=== PATIENT | male | born 1955 | race Caucasian/White ===

== ENCOUNTER 2016-06-25 14:04 | Inpatient (IN) | payer OTHER ==
[2016-06-25 14:29] VITALS: BMI 44.6
[2016-06-25 15:04] LABS: BLOOD UREA NITROGEN 83 MG/DL (9-20); CALCIUM 9.1 MG/DL (8.4-10.2); CALCULATED OSMOLALITY 282 MOs/Kg (270-290); CHLORIDE 70 mEq/L (98-107); PARTIAL THROMB. TIME 27.1 SEC (22-35); TOTAL PROTEIN 8.1 G/DL (6.3-8.2)
--- NOTE | 2016-06-25 15:08 | DIRPT ---
CLINICAL DATA: Short of breath. Low potassium. EXAM: CHEST 2 VIEW COMPARISON: 05/31/2015 and 12/17/2014. FINDINGS: Left lower lung zone nodule, as noted on the prior to chest radiographs, is without change since 12/17/2014. The stability strongly supports a benign etiology. Lungs otherwise clear. No pleural effusion or pneumothorax. Heart, mediastinum rhett are unremarkable. Bony thorax is intact. IMPRESSION: No active cardiopulmonary disease. Electronically Signed By: Chuck Flores M.D. On: 06/25/2016 15:05
[2016-06-25 15:14] LABS: GLUCOSE 412 MG/DL (70-99); SODIUM LEVEL 124 mEq/L (137-146)
[2016-06-25 15:16] LABS: MPV 9.3 fL (7.4-10.4)
[2016-06-25 15:50] LABS: SEG NEUTROPHIL 87 % (45-76)
[2016-06-25] MEDS ORDERED: NS 1,000 ML IV ONE (15:51)
[2016-06-25] MEDS ORDERED: POTASSIUM CHLORIDE 20 MEQ TAB PO ONE (15:52)
--- NOTE | 2016-06-25 16:06 | EDPRACDOC ---
- General Information Chief Complaint: Neuro Symptoms/Deficits Stated Complaint: LOW POTASSIUM/DIZZINESS Time Seen by Provider: 06/25/16 16:03 Information Source: Patient Mode Of Arrival: Car Home Medications: Home Medications Atorvastatin Calcium 80 mg PO HS 02/23/16 Furosemide 40 mg PO DAILY 02/23/16 Metoprolol Tartrate 25 mg PO BID 02/23/16 Nitroglycerin [Nitrostat] 0.4 mg SL Q5MX3 PRN 02/23/16 Potassium Chloride [Klor-Con 10] 10 meq PO DAILY 02/23/16 Aspirin [Ecotrin] 81 mg PO DAILY 03/01/16 Prasugrel HCl [Effient] 10 mg PO DAILY 03/01/16 Torsemide 20 mg PO BID 06/25/16 Allergies/Adverse Reactions: Allergies Allergy/AdvReac Type Severity Reaction Status Date / Time morphine Allergy Nausea/Vomi Verified 06/25/16 14:29 ting pseudoephedrine Allergy Hives* Verified 06/25/16 14:29 - History of Present Illness Onset: 2 WKS HPI: h/o CHF/ DC, evaluated by [facility] a week ago for 35 pound weight gain. Inc diuretics and had blood drawn yesterday. Pt was called and told to come to the ER. He c/o leg cramping and extreme thirst. No h/o diabetes, has blood sugar over 400 with K 2.4 Symptoms Started: Reports: Gradually Symptoms Description: Worsening Symptoms: Reports: Weak. Denies: Change of vision Relevant History of: Reports: Electrolyte disorder, DC Associated signs and symptoms:: Denies: GI Bleed, Chest pain, Fever ED Past Medical History - History Reviewed Yes Nurses notes reviewed and agree except as marked - Patient Medical History Cardiac History: Reports: Congestive Heart Failure, Cardiac Catheterization. Denies: Hypertension (taken off BP meds 5-6 months ago), Heart Attack Respiratory History: Reports: Cough, Pulmonary Embolism. Denies: Asthma, Pneumonia GI/ History: Reports: Kidney Stones. Denies: Renal Disease Musculoskeletal History: Reports: Arthritis (stephanie knee), Osteoarthritis (knees) Psychological History: Denies: Substance Use Disorder Systemic History: Reports: Cancer (SKIN) Surgical History: Reports: Angioplasty (06/02/15), Cardiac Catheterization, Other (Bilat. knee ACL repairs; carpal tunnel R, trigger finger repair). Denies: Cholecystectomy - Family Medical History Reports: Hypertension (multi family), Diabetes (brother/father), Cardiac Disorders (grandfather ([place])). Denies: Cancer, Stroke - Social Medical History Smoking Status: Former smoker Social History: Denies: Substance Use Disorder EDM Review of Systems - Review of Systems ROS Negative Except as Marked: Yes All systems reviewed and were negative except as marked - Physical Exam Constitutional: Alert (Awake), No apparent distress Oriented to: Time, Person, Place Last recorded Vital Signs: Last Vital Signs Temp 98.7 F 06/25/16 14:24 Pulse 79 06/25/16 15:47 Resp 18 06/25/16 14:24 BP 141/75 06/25/16 15:47 Pulse Ox 95 06/25/16 15:47 Oxygen Pulse Oxygen Saturation 95 O2 Device Room Air Oxygen Flow Rate Fraction of Inspired Oxygen ( FIO2) - HEENT Head: Normal ( normocephalic) Eye Exam: Normal (PERRL, EOMI, Sclera white) Oropharynx: Membranes Dry Tympanic Membrane: Normal ENT EAC: Normal TMJ: Normal Nose: No Symptoms Reported (septum midline) Neck: Normal (FROM, trachea at midline) - Respiratory/Cardiovascular Respiratory: Normal - CTA (BBS clear to auscultation without adventitious sounds ) Cardiovascular: Normal (RRR without murmur, gallop or rub) - GI Auscultation: Normal (NABS) Palpation: Normal (Soft,No rebound or guarding, non distended) Tenderness: Non tender West's Sign: Negative - Musculoskeletal Back: Normal (Non-Tender) Extremities: Normal (Normal tone, Pulses 2+ No cyanosis or edema, FROM) - Integumentary Skin: Normal, Warm, Dry Lymphatics: Normal (no adenopathy) - Neurologic Memory Impaired: Normal Motor Function: Normal (Normal tone, Pulses 2+ No cyanosis or edema, FROM) Cranial Nerve: Normal (CN II-X11 intact sensation, strength 5/5) Cerebellar: Normal Mood Description: Normal Perception: Normal - Results 06/25/16 14:36 06/25/16 14:36 WBC 8.7 xk/uL (3.8-10.8) 06/25/16 14:36 RBC 4.76 xM/uL (4.70-6.10) 06/25/16 14:36 Hgb 14.9 g/dL (14.0-18.0) 06/25/16 14:36 Hct 42.0 % (42-52) 06/25/16 14:36 MCV 88 fL (80-94) 06/25/16 14:36 MCH 31.4 pg (27-32) 06/25/16 14:36 MCHC 35.5 g/dl (33-36) 06/25/16 14:36 RDW 13.5 % (11.5-14.5) 06/25/16 14:36 Plt Count 173 xk/uL (130-400) 06/25/16 14:36 MPV 9.3 fL (7.4-10.4) 06/25/16 14:36 Neut % (Auto) Cancelled 06/25/16 14:36 Lymph % (Auto) Cancelled 06/25/16 14:36 Craig % (Auto) Cancelled 06/25/16 14:36 Eos % (Auto) Cancelled 06/25/16 14:36 Baso % (Auto) Cancelled 06/25/16 14:36 Absolute Neuts (auto) Cancelled 06/25/16 14:36 Absolute Lymphs (auto) Cancelled 06/25/16 14:36 Seg Neuts % (Manual) 87 % (45-76) H 06/25/16 14:36 Lymphocytes % (Manual) 10 % (17-44) L 06/25/16 14:36 Monocytes % (Manual) 3 % (0-10) 06/25/16 14:36 Absolute Lymphocytes 0.87 xk/uL (0.65-4.75) 06/25/16 14:36 Platelet Estimate Norm (NORMAL) 06/25/16 14:36 RBC Morphology Norm 06/25/16 14:36 PT 10.7 SEC (9.2-11.2) 06/25/16 14:36 INR 1.0 06/25/16 14:36 APTT 27.1 SEC (22-35) 06/25/16 14:36 Sodium 124 mEq/L (137-146) L* 06/25/16 14:36 Potassium 2.4 mEq/L (3.5-5.1) L* 06/25/16 14:36 Chloride 70 mEq/L (98-107) L 06/25/16 14:36 Carbon Dioxide 39 mMOL/L (22-33) H 06/25/16 14:36 Anion Gap 17 mEq/L (8-16) H 06/25/16 14:36 BUN 83 MG/DL (9-20) H 06/25/16 14:36 Creatinine 1.80 MG/DL (0.66-1.25) H 06/25/16 14:36 Estimated GFR (MDRD) 39 mL/min (>=60) L 06/25/16 14:36 Glucose 412 MG/DL (70-99) H* 06/25/16 14:36 Calculated Osmolality 282 MOs/Kg (270-290) 06/25/16 14:36 Calcium 9.1 MG/DL (8.4-10.2) 06/25/16 14:36 Total Bilirubin 1.8 MG/DL (0.2-1.3) H 06/25/16 14:36 AST 44 IU/L (17-59) 06/25/16 14:36 ALT 43 IU/L (21-72) 06/25/16 14:36 Alkaline Phosphatase 112 IU/L (38-126) 06/25/16 14:36 Troponin I 0.04 ng/mL (<.04) 06/25/16 14:36 Ozx-A-Ydhiievqnzt Pept 225 pg/mL (0-900) 06/25/16 14:36 Total Protein 8.1 G/DL (6.3-8.2) 06/25/16 14:36 Albumin 4.6 G/DL (3.5-5.0) 06/25/16 14:36 Lab Results 06/25/16 06/25/16 06/25/16 14:36 14:36 14:36 WBC 8.7 RBC 4.76 Hgb 14.9 Hct 42.0 MCV 88 MCH 31.4 MCHC 35.5 RDW 13.5 Plt Count 173 MPV 9.3 Neut % (Auto) Cancelled Lymph % (Auto) Cancelled Craig % (Auto) Cancelled Eos % (Auto) Cancelled Baso % (Auto) Cancelled Absolute Neuts (auto) Cancelled Absolute Lymphs (auto) Cancelled Seg Neuts % (Manual) 87 H Lymphocytes % (Manual) 10 L Monocytes % (Manual) 3 Absolute Lymphocytes 0.87 Platelet Estimate Norm RBC Morphology Norm PT 10.7 INR 1.0 APTT 27.1 Sodium 124 L* Potassium 2.4 L* Chloride 70 L Carbon Dioxide 39 H Anion Gap 17 H BUN 83 H Creatinine 1.80 H Estimated GFR (MDRD) 39 L Glucose 412 H* Calculated Osmolality 282 Calcium 9.1 Total Bilirubin 1.8 H AST 44 ALT 43 Alkaline Phosphatase 112 Troponin I 0.04 Cjl-N-Eqwjziazrts Pept 225 Total Protein 8.1 Albumin 4.6 - Departure Final Diagnosis: Hyperglycemia, Hypokalemia Referrals: Tyler Yanez MD [Primary Care Provider] - One Week Prescriptions: No Action Metoprolol Tartrate 25 mg PO BID Atorvastatin Calcium 80 mg PO HS Potassium Chloride [Klor-Con 10] 10 meq PO DAILY Furosemide 40 mg PO DAILY Nitroglycerin [Nitrostat] 0.4 mg SL Q5MX3 PRN PRN Reason: Chest Pain Or Discomfort Prasugrel HCl [Effient] 10 mg PO DAILY Aspirin [Ecotrin] 81 mg PO DAILY Torsemide 20 mg PO BID Decision to Admit Time: 16:09 (DR Contreras to admit) Decision to admit date: 06/25/16 Decision to admit: from ED
[2016-06-25] MEDS ORDERED: GLUCOSE (ORAL GEL) 15 GM TUBE PO PRN (16:31)
[2016-06-25] MEDS ORDERED: DEXTROSE 25 GM/50 ML PFS IV PRN (16:31)
[2016-06-25] MEDS ORDERED: GLUCAGON 1 MG VIAL SQ PRN (16:31)
[2016-06-25] MEDS: KCl 10 mEq/100 ml Premix (Run) 10 MEQ/100 ML RTU IV SCH ×4 (17:09→21:39)
[2016-06-25 17:14] LABS: LEUKOCYTES/URINE NEG (NEGATIVE); NITRITE/URINE NEG (NEGATIVE); URINE OCCULT BLOOD NEG (NEG/TRACE); WBC/URINE 0-2 (0-2)
--- NOTE | 2016-06-25 17:21 | HISTPHYS ---
- Chief Complaint DIZZINESS, LEG CRAMPS - History of Present Illness Jerzy Soto is a 61 year old white man who presented to the ED with a 3 day history of weakness and dizziness, and associated leg and abdominal cramping. He states that he had gained about 16 pounds in two weeks, felt swollen in his abdomen, but had no swelling in his legs, and went to see his can maker, Dr. Morales. Some blood tests were drawn and the patient was placed on a diuretic and told to return today. He returned with these symptoms today and was advised to come to the ED. He states that at first he seemed to urinate a lot more, then somewhat less, then an average amount, but continued to feel swollen and bloated, and now felt weak and dizzy, and a bit nauseated. His legs began to cramp and he began to get abdominal cramps also. The patient 's blood sugar was found to be over 400. Initially the patient denied any family history of diabetes, but then admitted that one of his brothers does have diabetes, but he didn't get it until he was in his fifties. - Medical History Cardiac History: Reports: Coronary Artery Disease (angioplasty and stent placed last May 2015), Congestive Heart Failure, Cardiac Catheterization (May 2015 - [facility] ER), Stress Test (May 2015 + ischemia), Hypercholesterolemia. Denies: Hypertension (taken off BP meds 5-6 months ago), Heart Attack Respiratory History: Reports: Cough, Pulmonary Embolism. Denies: Asthma, Pneumonia GI/ History: Reports: Kidney Stones. Denies: Renal Disease Musculoskeletal History: Reports: Arthritis (stephanie knee), Osteoarthritis (knees) Systemic History: Reports: Cancer (SKIN). Denies: Diabetes, Hypothyroidism Neurological History: Reports: No Significant History Psychological History: Reports: No Significant History. 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 knee ACL repairs; carpal tunnel R, trigger finger repair). Denies: Cholecystectomy - Medictions/Allergies Allergies morphine Allergy (Verified 06/25/16 14:29) Nausea/Vomiting pseudoephedrine Allergy (Verified 06/25/16 14:29) Hives* Current Medication List: Reviewed Home Medications Atorvastatin Calcium 80 mg PO HS 02/23/16 Furosemide 40 mg PO DAILY 02/23/16 Metoprolol Tartrate 25 mg PO BID 02/23/16 Nitroglycerin [Nitrostat] 0.4 mg SL Q5MX3 PRN 02/23/16 Potassium Chloride [Klor-Con 10] 10 meq PO DAILY 02/23/16 Aspirin [Ecotrin] 81 mg PO DAILY 03/01/16 Prasugrel HCl [Effient] 10 mg PO DAILY 03/01/16 Torsemide 20 mg PO BID 06/25/16 - Family History Reports: Hypertension (multi family), Diabetes (brother/father), Cardiac Disorders (grandfather ([place])). Denies: Cancer, Stroke - Social History Travel Outside of [place] in the Last 3 Months?: No Lives: with Significant Other Smoking Status: Former smoker (quit 1991) Social History: Denies: Alcohol Use, Substance Use Disorder - Review of Systems Constitutional: Weight gain (20 lb in 1 week) Eyes: Blurred Vision Ears: No Symptoms Reported Nose: No Symptoms Reported Mouth: Dry Mouth Throat/Neck: No Symptoms Reported, Hoarseness, Snoring Respiratory: Cough, Shortness of Breath, Bronchitis, Other (sinus congestion, bad taste in mouth) Cardiovascular: Edema, Syncope. negative: Chest Pain, Cyanosis, Orthopnea, Palpitations, PND Gastrointestinal: Nausea, Constipation, Appetite Changes. negative: Vomiting, Abdominal Pain, Melena Genitourinary: Frequency, Nocturia, Urgency to urinate. negative: Bleeding, Dysuria, Discharge, Testicular Pain, Flank Pain, Benign prostatic hyperplasia ( BPH) Neurological: Dizziness, Headache, Weakness. negative: Gait Difficulty, Seizure , Speech Difficulty, Vertigo, Tremors, Mood Changes, Memory Changes, Changes in Orientation Musculoskeletal:: Osteoarthritis, Stiffness, Gout, Weakness, Joint Pain, Muscle Pain Integumentary: No Symptoms Reported Allergic/Immunologic: No Symptoms Reported Hematologic: No Symptoms Reported Endocrine: Weight Gain, Heat Intolerance, Diabetes Psychiatric: Anxiety - Physical Exam Vital Signs: Initial Vitals Temperature 98.7 F 06/25/16 14:24 Pulse Rate 72 06/25/16 14:24 Respiratory Rate 18 06/25/16 14:24 Blood Pressure 133/82 06/25/16 14:24 Pulse Oxygen Saturation 93 06/25/16 14:24 Constitutional: Alert, Restless, Other (obese) Oriented to: Time, Person, Place - HEENT Head: Normal Eye: Normal (PERRL: EOMI) Oropharynx: Membranes Dry. negative: Drooling, Exudate, Red Tympanic Membrane: Normal ENT EAC: Normal. negative: Cerumen Nose: Bleeding (Right side,), Congestion. negative: Discharge, Deformity Respiratory: Normal - CTA. negative: Accessory Muscle Use Cardiovascular: Normal (regular rhthm and rate) - GI Auscultation: Normal Palpation: Normal (soft, obese, nondistended, no mass). negative: Enlarged liver, Enlarged spleen, Fluid Wave Tenderness: Non tender West's Sign: Negative Rectal Exam: Deferred - Musculoskeletal Back: Normal Extremities: Normal, Pedal Pulse (normal), Radial Pulse (normal). negative: Clubbing, Cyanosis, Edema Spine: non-tender, normal alignment, normal inspection - Integumentary Skin: Warm, Dry Lymphatics: Normal - Neurologic Memory Impaired: Normal Motor Function: Normal Cranial Nerve: Normal Cerebellar: Normal Mood Description: Anxious, Appropriate Thought: Coherent Perception: Normal - Focused CV Perfusion Exam Vital Signs: Last Vital Signs Temp 98.7 F 06/25/16 14:24 Pulse 79 06/25/16 15:47 Resp 18 06/25/16 14:24 BP 141/75 06/25/16 15:47 Pulse Ox 95 06/25/16 15:47 - Lab Results Laboratory Tests 06/25/16 06/25/16 06/25/16 14:36 14:36 14:36 WBC 8.7 Hgb 14.9 Hct 42.0 Plt Count 173 Seg Neuts % (Manual) 87 H Monocytes % (Manual) 3 PT 10.7 INR 1.0 APTT 27.1 Sodium 124 L* Potassium 2.4 L* Chloride 70 L Carbon Dioxide 39 H Anion Gap 17 H BUN 83 H Creatinine 1.80 H Estimated GFR (MDRD) 39 L Glucose 412 H* Calculated Osmolality 282 Calcium 9.1 Total Bilirubin 1.8 H AST 44 ALT 43 Alkaline Phosphatase 112 Troponin I 0.04 Fnv-V-Kxzupjobrab Pept 225 Total Protein 8.1 Albumin 4.6 Urine Color Urine Clarity Urine pH Ur Specific [place] Urine Protein Urine Glucose (UA) Urine Ketones Urine Nitrite Ur Leukocyte Esterase Urine WBC Ur Epithelial Cells 06/25/16 16:40 WBC Hgb Hct Plt Count Seg Neuts % (Manual) Monocytes % (Manual) PT INR APTT Sodium Potassium Chloride Carbon Dioxide Anion Gap BUN Creatinine Estimated GFR (MDRD) Glucose Calculated Osmolality Calcium Total Bilirubin AST ALT Alkaline Phosphatase Troponin I Pmn-J-Nmfrdfiwphn Pept Total Protein Albumin Urine Color Yellow Urine Clarity Clear Urine pH 8.0 Ur Specific [place] 1.005 Urine Protein 1+ H Urine Glucose (UA) Neg Urine Ketones Neg Urine Nitrite Neg Ur Leukocyte Esterase Neg Urine WBC 0-2 Ur Epithelial Cells Occ - Diagnostic Findings CXR: FINDINGS: Left lower lung zone nodule, as noted on the prior to chest radiographs, is without change since 12/17/2014. The stability strongly supports a benign etiology. Lungs otherwise clear. No pleural effusion or pneumothorax. Heart, mediastinum rhett are unremarkable. Bony thorax is intact. IMPRESSION: No active cardiopulmonary disease. Electronically Signed By: Chuck Flores M.D. On: 06/25/2016 15:05 EKG: - Assessment (1) Acute kidney injury N17.9 - ACUTE KIDNEY FAILURE, UNSPECIFIED Acute Present on Admission: Yes Admit to PCU, begin aggressive hydration then correct serum electrolyte abnormalities carefully. Will correct serum sodium slowly, potassium needs supplementation also. Follow renal function closely. (2) Hyponatremia with decreased serum osmolality E87.1 - HYPO-OSMOLALITY AND HYPONATREMIA Acute Present on Admission: Yes Follow renal function and lab abnormalities closely, so as not to correct abnormalities too quickly. Use normal saline only. Add potassium after initial 2 liters of IV fluids given. (3) Hyperglycemia R73.9 - HYPERGLYCEMIA, UNSPECIFIED Acute Present on Admission: Yes Suspect new onset of diabetes mellitus-2. Check Hg A1c. Will monitor FSBS q 4 hr or ACHS and use moderate dose SSI. Hydrate patient aggressively and give insulin as needed. Once renal failure has been corrected, may be able to start oral medication. (4) Hypokalemia E87.6 - HYPOKALEMIA Acute Present on Admission: Yes replace potassium losses. (5) Hypertension I10 - ESSENTIAL (PRIMARY) HYPERTENSION Chronic Qualifiers: Hypertension type: essential hypertension Qualified Code(s): I10 - Essential (primary) hypertension Continue low dose beta-karlie. 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 (7) Coronary artery disease I25.10 - ATHSCL HEART DISEASE OF [place] CORONARY ARTERY W/O ANG PCTRS Acute Present on Admission: Yes Qualifiers: Coronary Disease-Associated Artery/Lesion type: [place] artery [place] vs. transplanted heart: [place] heart Associated angina: without angina Qualified Code(s): I25.10 - Atherosclerotic heart disease of [place] coronary artery without angina pectoris Patient is on Effient & Aspirin, does not need Enoxaparin. Case Care Discussed with: Patient, Nursing Staff Total Time: 65 min Critical Care: Yes Couseling Time (>50% in counseling/coordination): Yes Code: 291
[2016-06-25] MEDS ORDERED: NITROGLYCERINE 0.4 MG TAB SL PRN (17:52)
[2016-06-25 18:29] LABS: BLOOD UREA NITROGEN 81 MG/DL (9-20); CALCIUM 9.3 MG/DL (8.4-10.2); CALCULATED OSMOLALITY 283 MOs/Kg (270-290); CHLORIDE 70 mEq/L (98-107); GLUCOSE 309 MG/DL (70-99); SODIUM LEVEL 128 mEq/L (137-146)
[2016-06-25] MEDS: REGULAR INSULIN 100 UNITS/ML - 3 ML VIAL SQ SCH ×2 (18:35→22:50)
[2016-06-25] MEDS ORDERED: Vaccine Screening Complete SCH (19:00)
[2016-06-25] MEDS: NS 1,000 ML IV SCH ×2 (20:08→21:05)
[2016-06-25] MEDS: POTASSIUM CHLORIDE 20 MEQ TAB PO SCH ×2 (20:09→22:49)
[2016-06-25] MEDS: METOPROLOL TARTRATE 25 MG TAB PO SCH (20:10)
[2016-06-25] MEDS: ATORVASTATIN 80 MG TAB PO SCH (20:10)
[2016-06-25 21:31] LABS: BLOOD UREA NITROGEN 75 MG/DL (9-20); CALCIUM 8.3 MG/DL (8.4-10.2); CALCULATED OSMOLALITY 277 MOs/Kg (270-290); CHLORIDE 76 mEq/L (98-107); GLUCOSE 281 MG/DL (70-99); SODIUM LEVEL 127 mEq/L (137-146)
[2016-06-25] MEDS: NS/KCL 40 mEq 1,000 ML IV SCH (22:43)
[2016-06-26] MEDS: NS/KCL 40 mEq 1,000 ML IV SCH ×4 (00:12→23:16)
[2016-06-26 01:16] LABS: BLOOD UREA NITROGEN 67 MG/DL (9-20); CALCIUM 8.3 MG/DL (8.4-10.2); CALCULATED OSMOLALITY 272 MOs/Kg (270-290); CHLORIDE 79 mEq/L (98-107); GLUCOSE 198 mg/dL (70-99); SODIUM LEVEL 128 mEq/L (137-146)
[2016-06-26] MEDS: REGULAR INSULIN 100 UNITS/ML - 3 ML VIAL SQ SCH ×4 (05:37→20:27)
[2016-06-26 05:42] LABS: BLOOD UREA NITROGEN 55 MG/DL (9-20); CALCIUM 8.6 MG/DL (8.4-10.2); CALCULATED OSMOLALITY 273 MOs/Kg (270-290); CHLORIDE 84 mEq/L (98-107); GLUCOSE 155 mg/dL (70-99); SODIUM LEVEL 132 mEq/L (137-146)
[2016-06-26] MEDS: METOPROLOL TARTRATE 25 MG TAB PO SCH ×2 (08:02→20:28)
[2016-06-26] MEDS: PRASUGREL HCL 10 MG TABLET PO SCH (08:02)
[2016-06-26 09:56] LABS: BLOOD UREA NITROGEN 51 MG/DL (9-20); CALCIUM 8.7 MG/DL (8.4-10.2); CALCULATED OSMOLALITY 280 MOs/Kg (270-290); CHLORIDE 84 mEq/L (98-107); GLUCOSE 288 mg/dL (70-99); SODIUM LEVEL 132 mEq/L (137-146)
[2016-06-26 13:11] LABS: BLOOD UREA NITROGEN 43 MG/DL (9-20); CALCIUM 8.7 MG/DL (8.4-10.2); CALCULATED OSMOLALITY 275 MOs/Kg (270-290); CHLORIDE 88 mEq/L (98-107); GLUCOSE 238 mg/dL (70-99); SODIUM LEVEL 133 mEq/L (137-146)
--- NOTE | 2016-06-26 13:50 | GENMEDPROG ---
Chief Complaint: JUD, [place] DM-2, DEHYDRATION, HYPONATREMIA Subjective Note: patient is feeling better, renal function improving Currently: Reports: Ambulating. Denies: Cough, Wheezing, GONZALEZ, SOB, Nausea and Vomiting, Abdominal Pain DVT Prophylaxis: Yes - Physical Examination Vital Signs and I&O: Last Vital Signs Temp 97.8 F 06/26/16 07:11 Pulse 61 06/26/16 12:00 Resp 18 06/26/16 11:38 BP 127/70 06/26/16 11:38 Pulse Ox 95 06/26/16 11:38 Oxygen Pulse Oxygen Saturation 95 O2 Device Room Air Oxygen Flow Rate Fraction of Inspired Oxygen ( FIO2) Intake & Output 06/23/16 06/24/16 06/25/16 06/26/16 23:59 23:59 23:59 23:59 Intake Total 560 3602 Output Total 900 3120 Balance -340 482 Patient's weight 134.672 kg 135.307 kg General: Alert, Oriented x3, Cooperative, Mild distress, Well appearing, Well nourished, Weakness HEENT: Normal, PERRLA, EOMI, Anicteric Sclera, Mucous membr. moist/pink Neck: Full range of motion, Normal Trachea alignment, Normal inspection, No Masses palpable, No Thyromegaly palpable, Supple. negative: JVD, Muscle spasm Lymphatics: Normal Respiratory: Normal - CTA. negative: Accessory Muscle Use Cardiovascular: Regular rate and rhythm, Normal S1, Normal S2, Good Pedal Pulses. negative: LE Edema GI: Normal bowel sounds, Soft, Non tender, No masses, Obese Extremities/Musculoskeletal: Normal pulses, DJD, FROM, Motor 5/5 throughout. negative: Edema Skin: Warm,Dry and Intact, No rashes Neurological: Normal speech, Strength at 5/5 X4 ext, Normal tone Psych/Mental Status: Appropriate, Normal Affect, Cooperative Lab/DI/Studies Reviewed: Laboratory Tests 06/26/16 06/26/16 04:50 12:34 Sodium 133 L Potassium 3.2 L Chloride 88 L Carbon Dioxide 36 H Anion Gap 12 BUN 43 H Creatinine 1.10 Estimated GFR (MDRD) > 60 Glucose 238 H Calculated Osmolality 275 Calcium 8.7 Magnesium 2.60 H - Assessment (1) Acute kidney injury Acute N17.9 - ACUTE KIDNEY FAILURE, UNSPECIFIED Comment/Plan: Continue hydration, & correct serum electrolyte abnormalities. Will correct serum sodium slowly, potassium supplementation also. Follow renal function closely. (2) Hyponatremia with decreased serum osmolality Acute E87.1 - HYPO-OSMOLALITY AND HYPONATREMIA Comment/Plan: Follow renal function and lab abnormalities closely. Use normal saline only. Add potassium. (3) Hyperglycemia Acute R73.9 - HYPERGLYCEMIA, UNSPECIFIED Comment/Plan: New onset of diabetes mellitus-2. Check Hg A1c. Will monitor FSBS q 4 hr or ACHS and use moderate dose SSI. Hydrate patient aggressively and give insulin as needed. Once renal failure has been corrected, may be able to start oral medication. (4) Hypokalemia Acute E87.6 - HYPOKALEMIA Comment/Plan: replace potassium losses. (5) Hypertension Chronic I10 - ESSENTIAL (PRIMARY) HYPERTENSION Qualifiers: Hypertension type: essential hypertension Qualified Code(s): I10 - Essential (primary) hypertension Comment/Plan: Continue low dose beta-karlie. 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 (7) Coronary artery disease Acute I25.10 - ATHSCL HEART DISEASE OF [place] CORONARY ARTERY W/O ANG PCTRS Qualifiers: Coronary Disease-Associated Artery/Lesion type: [place] artery [place] vs. transplanted heart: [place] heart Associated angina: without angina Qualified Code(s): I25.10 - Atherosclerotic heart disease of [place] coronary artery without angina pectoris Comment/Plan: Patient is on Effient & Aspirin, does not need Enoxaparin. Case Care Discussed with: Patient, Nursing Staff Education/Counseling Given To: Patient Education/Counseling Given Regarding: Diagnosis, Treatment, Prognosis Total Time: 35 min Critical Care: No Couseling Time (>50% in counseling/coordination): Yes Code: 80920 (12+)
[2016-06-26] MEDS ORDERED: TEMAZEPAM 15 MG CAP PO PRN (18:01)
[2016-06-26] MEDS ORDERED: PROMETHAZINE 25 MG/ML VIAL IV PRN (18:01)
[2016-06-26] MEDS ORDERED: ACETAMINOPHEN 650 MG SUPP PR PRN (18:01)
[2016-06-26] MEDS ORDERED: DOCUSATE-SENNA CONCENTRATE TAB PO PRN (18:01)
[2016-06-26] MEDS ORDERED: BENZONATATE 100 MG PERLES PO PRN (18:01)
[2016-06-26] MEDS ORDERED: SIMETHICONE 80 MG TAB PO PRN (18:01)
[2016-06-26] MEDS ORDERED: ONDANSETRON HCL 4 MG/2 ML VIAL IV PRN (18:01)
[2016-06-26] MEDS: ACETAMINOPHEN 325 MG/TAB TABLET PO PRN (18:16)
[2016-06-26] MEDS ORDERED: POTASSIUM CHLORIDE 20 MEQ/15 ML ORAL SOLN PO ONE (18:30)
[2016-06-26] MEDS ORDERED: NICOTINE 21 MG PATCH TOP SCH (19:00)
[2016-06-26] MEDS: ATORVASTATIN 80 MG TAB PO SCH (20:28)
[2016-06-27] MEDS: NS/KCL 40 mEq 1,000 ML IV SCH ×2 (02:07→12:09)
[2016-06-27 05:44] LABS: BLOOD UREA NITROGEN 31 MG/DL (9-20); CALCIUM 8.5 MG/DL (8.4-10.2); CALCULATED OSMOLALITY 273 MOs/Kg (270-290); CHLORIDE 98 mEq/L (98-107); GLUCOSE 135 mg/dL (70-99); LDL (calc.) 43.6 MG/DL (<100); SODIUM LEVEL 137 mEq/L (137-146); VLDL (calc.) 21.4 MG/DL (5-40)
[2016-06-27] MEDS: REGULAR INSULIN 100 UNITS/ML - 3 ML VIAL SQ SCH ×2 (06:05→11:54)
[2016-06-27] MEDS ORDERED: MetFORMIN, EXT REL 500 MG TAB PO SCH (07:00)
[2016-06-27] MEDS ORDERED: POTASSIUM CHLORIDE 20 MEQ TAB PO SCH (08:00)
[2016-06-27] MEDS: PRASUGREL HCL 10 MG TABLET PO SCH (08:01)
--- NOTE | 2016-06-27 08:15 | PCM.DCS92 ---
- Final/Secondary Discharge Diagnosis (1) Acute kidney injury Acute N17.9 - ACUTE KIDNEY FAILURE, UNSPECIFIED Present on Admission: Yes Comment: RESOLVED- corrected serum electrolyte abnormalities. Renal function now normal. (2) Hyponatremia with decreased serum osmolality Acute E87.1 - HYPO-OSMOLALITY AND HYPONATREMIA Present on Admission: Yes Comment: Patient hydrated with normal saline, given supplemental potassiium IV and PO. Deficits have been corrected. (3) Hyperglycemia Acute R73.9 - HYPERGLYCEMIA, UNSPECIFIED Present on Admission: Yes Comment: New onset of diabetes mellitus-2. Hg A1c= 7.7. Monitored FSBS ACHS and used moderate dose SSI. Hydrated patient aggressively and gave insulin as needed. After renal failure was been corrected, started oral medication with metformin. Patient has received initial education about diet, checking blood sugars, foot care. He could benefit from continuing outpatient diabetes education classes. Discharge home on metformin-ER 500 mg 1 tab daily. (4) Hypokalemia Acute E87.6 - HYPOKALEMIA Present on Admission: Yes Comment: Replaced potassium losses. (5) Hypertension Chronic I10 - ESSENTIAL (PRIMARY) HYPERTENSION Present on Admission: Yes essential hypertension I10 - Essential (primary) hypertension Comment: Continue low dose beta-karlie. (6) Obesity, Class III, BMI 40-49.9 (morbid obesity) Chronic E66.01 - MORBID (SEVERE) OBESITY DUE TO EXCESS CALORIES Present on Admission: Yes Comment: [employer] on low-mod carbohydrate diet, exercise, and refer for diabetes education classes after discharge. (7) Coronary artery disease Acute I25.10 - ATHSCL HEART DISEASE OF [place] CORONARY ARTERY W/O ANG PCTRS Present on Admission: Yes chil[place] artery [place] heart without angina I25.10 - Atherosclerotic heart disease of [place] coronary artery without angina pectoris Comment: Patient is on Effient & Aspirin, continue same. No anginal symptoms at this time. Discharge Disposition: Home Discharge Condition: Improved Cognitive Discharge Status: Unimpaired Fuctional Discharge Status: Independent Physician Follow up/Referrals: Tyler Yanez MD [Primary Care Provider] - One Week Home Medications / New Prescriptions: New Metformin HCl [Metformin HCl ER] 500 mg PO DAILY #30 tab Nicotine [Nicoderm] 21 mg TOP Q24H #30 pat Continue Metoprolol Tartrate 25 mg PO BID Atorvastatin Calcium 80 mg PO HS Potassium Chloride [Klor-Con 10] 10 meq PO DAILY Nitroglycerin [Nitrostat] 0.4 mg SL [id number] PRN PRN Reason: Chest Pain Or Discomfort Prasugrel HCl [Effient] 10 mg PO DAILY Aspirin [Ecotrin] 81 mg PO DAILY Torsemide 20 mg PO BID O2 Device: Room Air Diet at Discharge: Heart Healthy, Diabetic, 2200 Calorie Activity: As Tolerated Call Office For: Worsening Symptoms Discontinue use of:: Alcohol, All Types of Tobacco - DC Summary Notes Hospital Course Note:: Discharge summary on patient named JERZY SOTO admitted to [facility] on 06/25/16 by Sheree Barbosa MD. Date of discharge is [06/27/16]. Jerzy Soto is a 61 year old white man who presented to the ED with a 3 day history of weakness and dizziness, and associated leg and abdominal cramping. 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 Some blood tests were drawn and the patient was placed on a diuretic and told to return today. He returned with these symptoms today and was advised to come to the ED. He states that at first he seemed to urinate a lot more, then somewhat less, then an average amount, but continued to feel swollen and bloated, and now felt weak and dizzy, and a bit nauseated. His legs began to cramp and he began to get abdominal cramps also. The patient 's blood sugar was found to be over 400. Initially the patient denied any family history of diabetes, but then admitted that one of his brothers does have diabetes, but he didn't get it until he was in his fifties. Upon admission the patient was noted to have hyponatremia with a serum sodium of 124 and a potassium of 2.4. His serum glucose was 412, but he was not ketotic or acidotic. He did note polyuria and increased thirst within the past few weeks. the patient was placed on IV fluids for re-hydration with normal saline and after the initial bolus was reduced to a slower rate so as not to correct his sodium too fast. Serum chemistries were monitored at frequent intervals. Potassium was also supplemented both IV and PO. After the fist 24 hours he was no ,onger nauseated and was advanced to a diabetic diet. Insulin was given according to a moderate dose sliding scale initially. He did not require an insulin infusion. He corrected rapidly and once his renal function returned to normal, was started on metformin. He will benefit from additional outpatient diabetes education classes. The patient is to follow up with Dr. Yanez in 1 week. Total Time: 35 min Code: 52346 (>30min.) - Physical Exam Vital Signs: Last Vital Signs Temp 97.7 F 06/27/16 08:00 Pulse 57 L 06/27/16 08:00 Resp 18 06/27/16 08:00 BP 131/77 06/27/16 08:00 Pulse Ox 96 06/27/16 08:00 Oxygen Pulse Oxygen Saturation 96 O2 Device Room Air Oxygen Flow Rate Fraction of Inspired Oxygen ( FIO2) Constitutional: No apparent distress, Alert Oriented to: Time, Person, Place - HEENT Head: Normal Eye: Normal (PERRL: EOMI) Oropharynx: Normal. negative: Drooling, Exudate, Red Tympanic Membrane: Normal ENT EAC: Normal. negative: Cerumen Nose: Congestion. negative: Discharge, Deformity - Respiratory/Cardiovascular Respiratory: Normal - CTA. negative: Accessory Muscle Use Cardiovascular: Normal - GI Auscultation: Normal Palpation: Normal (soft, obese, nondistended, no mass). negative: Enlarged liver, Enlarged spleen, Fluid Wave Tenderness: Non tender West's Sign: Negative Rectal Exam: Deferred - Musculoskeletal Back: Normal Extremities: Normal, Pedal Pulse (normal), Radial Pulse (normal). negative: Clubbing, Cyanosis, Edema - Integumentary Skin: Warm, Dry. negative: Rash Lymphatics: Normal - Neurologic Memory Impaired: Normal Motor Function: Normal Cranial Nerve: Normal Cerebellar: Normal Mood Description: Normal, Appropriate Thought: Coherent Perception: Normal
[2016-06-27] MEDS: METOPROLOL TARTRATE 25 MG TAB PO SCH (09:11)
[2016-06-27 11:37] VITALS: BP 126/75; TEMP 97.8
[2016-06-27] MEDS: ACETAMINOPHEN 325 MG/TAB TABLET PO PRN (12:08)
[2016-06-27 12:19] VITALS: PULSE 60
== END 2016-06-27 15:00 | disposition home or self-care (01) | DRG 683 ==
LOC: ED 14:04 → PCU 16:24
PROVIDERS: ADMIT Family Medicine; ATTEND Family Medicine
DX: N17.9 Acute kidney failure, unspecified (principal); E87.1 Hypo-osmolality and hyponatremia; E11.65 Type 2 diabetes mellitus with hyperglycemia; I50.9 Heart failure, unspecified; Z68.41 Body mass index [BMI] 40.0-44.9, adult; E87.6 Hypokalemia; I10 Essential (primary) hypertension; E66.01 Morbid (severe) obesity due to excess calories; I25.10 Atherosclerotic heart disease of native coronary artery without angina pectoris; Z98.61 Coronary angioplasty status; E78.00 Pure hypercholesterolemia, unspecified; Z86.711 Personal history of pulmonary embolism; M19.90 Unspecified osteoarthritis, unspecified site; Z85.828 Personal history of other malignant neoplasm of skin; Z88.5 Allergy status to narcotic agent; Z88.8 Allergy status to other drugs, medicaments and biological substances
CPT/HCPCS: 36415; 71020; 80048; 80053; 80061; 81001; 82043; 82962; 83036; 83735; 83880; 84100; 84484; 85007; 85027; 85610; 85730; 93005; 96361; 96365; 96372; 99284; J3480; J3490; J7030